=== PATIENT | female | born 1995 | race Hispanic/Latino ===

== ENCOUNTER 2025-03-11 19:59 | Emergency (ER) | payer OTHER ==
[2025-03-11] MEDS ORDERED: Ibuprofen 800 MG TAB ONE (20:45)
== END 2025-03-11 21:44 | disposition home or self-care (01) ==
LOC: ERS 19:59
DX: R51.9 Headache, unspecified (principal); I95.9 Hypotension, unspecified
CPT/HCPCS: 70450; 93005